=== PATIENT | female | born 1990 | race African-American/Black ===

== ENCOUNTER 2016-09-11 19:20 | Emergency (ER) | payer OTHER ==
[~2016-09-11] VITALS: Ht 170.2 cm; Wt 64.0 kg
[~2016-09-11 19:20] MED LIST: DEPO; ENDOCET 5-3251 EACH PO; IBUPROFEN800 MG PO; PHENERGAN12.5 MG PR; PRENATAL1 EACH PO; ZOFRAN8 MG PO
[2016-09-11 22:20] VITALS: BP 126/82
== END 2016-09-11 22:21 | disposition home or self-care (01) ==
LOC: EME 19:20
PROC: 3E0234Z Introduction of Serum, Toxoid and Vaccine into Muscle, Percutaneous Approach (ICD-10-PCS; principal; 2016-09-11)
DX: S91.132A Puncture wound without foreign body of left great toe without damage to nail, initial encounter (principal); Z23 Encounter for immunization; W26.8XXA Contact with other sharp object(s), not elsewhere classified, initial encounter
CPT/HCPCS: 99281; 99284